=== PATIENT | male | born 1970 | race Caucasian/White ===

== ENCOUNTER 2022-12-12 16:47 | Emergency (ER) | payer OTHER, SELFPAY ==
[2022-12-12 17:16] VITALS: BP 133/69; PULSE 64; RESP 16; TEMP 36.7; O2SAT 98
--- NOTE | 2022-12-12 18:51 | XRR_ITS ---
PROCEDURE INFORMATION: Exam: XR Left Hand Exam date and time: 12/12/2022 6:57 PM Age: 52 years old Clinical indication: Injury or trauma; Other: Laceration; Bleeding/hemorrhage; Hand; Left TECHNIQUE: Imaging protocol: Radiologic exam of the left hand. Views: 3 or more views. COMPARISON: No relevant prior studies available. FINDINGS: Bones/joints: Displaced curvilinear fracture fragment of the distal tuft of the 3rd distal phalanx. Soft tissues: Wound along the distal aspect of the 3rd digit. XR/XR hand LT min 3V* [id number] IMPRESSION: Displaced fracture fragment of the distal tuft of the 3rd distal phalanx.
--- NOTE | 2022-12-12 18:54 | W.ED.EXTPRO ---
HPI - Extremity Problem General: Chief complaint: Extremity Injury, Upper Stated complaint: Left Hand Laceration Time Seen by Provider: 12/12/22 18:51 History of Present Illness: 52-year-old male patient comes in today with injury to the middle finger of the left hand. Patient was using a planing saw when he cut his finger. Patient cannot recall his last tetanus. Patient appears nontoxic. Patient appears in moderate pain. Patient denies any allergies to medications or routine medications. Patient reports no chronic medical problems. Associated symptoms: Deny chest pain or fever(s) Review of Systems Const: Denies: fever(s) Card: Denies: chest pain Resp: Denies: dyspnea Musc: Reports: extremity pain Skin/Breast: Reports: new lesions Physical Exam Const: COMMON NORMALS: alert HENMT: COMMON NORMALS: atraumatic HEAD & SCALP: atraumatic Neck/C-Spine: COMMON NORMALS: full ROM Resp: COMMON NORMALS: normal respiratory effort Cardio: COMMON NORMALS: regular rate and regular rhythm RATE: regular rate RHYTHM: regular rhythm Extremity: LEFT UPPER EXTREMITY: Yes hand & digits (Partial avulsion of the distal tip of the left middle finger) Left hand and digits: Yes inspection, Yes palpation and Yes ROM Neuro: SENSORIUM/ORIENTATION: Yes alert Skin: TRAUMA: laceration (Irregular laceration to the distal tip of the left middle finger.) irregular Procedures Laceration Laceration 1: Site: hand Side (If applicable): left Size (cm): 2 Description: irregular Local Anesthetic: lidocaine 1% Pre-repair: wound explored and irrigated extensively Skin layer closed with: nylon Size (cm): 5-0 Number of sutures: 7 Technique: simple, interrupted Course Vital Signs: Vital signs: Vital Signs Temperature 98.0 F 12/12/22 17:16 Pulse Rate 69 12/12/22 19:14 Respiratory Rate 18 12/12/22 19:14 Blood Pressure 158/84 12/12/22 19:14 Pulse Oximetry 98 12/12/22 19:14 Oxygen Delivery Me thod 12/12/22 19:14 MDM - Extremity (Nontraumatic) Medical Decision Making 52-year-old male patient comes in today for injury to the distal tip of the left middle finger. Patient has been using a planing salt when he cut the tip of the finger almost completely off. Patient got the distal part of the nail approximately 5 mm. Tip was held on by some tissue and skin on the volar aspect of the finger normal range of motion of the finger was noted. Good capillary refill was noted. Differential diagnosis includes but not limited to laceration, fracture, foreign body. X-ray of the hand noted a distal phalanx tuft fracture. Wound was repaired with sutures. Patient was recommended to follow-up with orthopedic surgeon for further treatment and evaluation. Patient will be kept on antibiotics Augmentin 875 1 tablet twice a day for 10 days. Patient was written a prescription for hydrocodone for severe pain. Patient's tetanus was updated. Patient reported understanding of care plan and need for follow-up with orthopedic surgeon. Lab Data Radiology Impressions Hand X-Ray 12/12/22 18:51 IMPRESSION: Displaced fracture fragment of the distal tuft of the 3rd distal phalanx. Discharge Plan Discharge Patient Disposition: Home Clinical Impression: Avulsion of finger tip Qualifiers: Encounter type: initial encounter Qualified Code(s): S61.209A - Unspecified open wound of unspecified finger without damage to nail, initial encounter Condition: Stable Prescriptions: New amoxicillin-pot clavulanate 875-125 mg tablet 1 tab PO BID Qty: 20 0RF hydrocodone-acetaminophen 5-325 mg tablet 1 tab PO Q8H PRN (Reason: pain (scale score 7-10)) Qty: 7 0RF Discharge Orders: Discharge ED (Routine); Ordered 12/12/22 Ordered By: Nahun Ward Discharge Diet: Usual diet Discharge Activity: Increase activity as tolerated Patient Instructions: Finger Laceration (ED), Opioid Safety Activity Restrictions/Additional Instructions: Home and rest. Keep finger clean and dry. Is important keep the wound as dry as possible for the next 48 hours. Follow-up with primary care or orthopedic surgeon in the next 3 to 5 days. Return to ER for high fever, uncontrolled pain, or new concerns. Coding Level of Care Code ED [employer] for [employer] Hernandez
[2022-12-12] MEDS: amoxicillin-clav 875-125 mg Tablet 1 TAB PO (19:07)
[2022-12-12] MEDS: tetanus-dipt-pertussis 0.5 mL SDV IM (19:07)
[2022-12-12] MEDS: lidocaine 1% INJ 10 mL (per mL) INJECTION (19:08)
[2022-12-12 19:14] VITALS: BP 158/84; PULSE 69; RESP 18; O2SAT 98
[2022-12-12] MEDS: bacitracin ointment Pkt 1 EACH TOPICAL (20:03)
[2022-12-12 20:14] VITALS: RESP 18
--- NOTE | 2022-12-13 08:26 | DCPLANNER ---
Addendum entered by Reyna Masters 12/13/22 11:55: post office manager received the following message from ortho front staff regarding follow up appointment: attempt made to contact patient - no vm set up/mailed letter to contact our clinic to schedule w/ luly pinto per dr anderson Original Note: post office manager had message to schedule a follow up appointment for patient with ortho. post office manager sent patients information to the front office staff at ortho. Patients information will be printed and reviewed. Clinic will call patient with appointment information.
--- NOTE | 2022-12-13 17:02 | DCPLANNER ---
TCM called patient due to no primary care physician - patient stated that he sees Jennifer Morales at [facility].
== END 2022-12-12 20:15 | disposition home or self-care (01) ==
PROVIDERS: Emergency Provider Nurse Practitioner Family; PCP Internal Medicine
DX: S62.633B Displaced fracture of distal phalanx of left middle finger, initial encounter for open fracture (principal); Z23 Encounter for immunization; W31.2XXA Contact with powered woodworking and forming machines, initial encounter
CPT/HCPCS: 12001; 73130; 90471; 90715; 99283; A6446